=== PATIENT | male | born 1985 | race Caucasian/White ===

== ENCOUNTER 2018-01-10 21:04 | Emergency (ER) | payer MEDICARE, MEDICAID, OTHER ==
[~2018-01-10] VITALS: Ht 190.5 cm; Wt 100.0 kg
[2018-01-10 21:16] VITALS: BP 140/71; PULSE 104; RESP 18; TEMP 99; O2SAT 95
[2018-01-10] MEDS ORDERED: IBUPROFEN 600 MG TAB PO ONE (21:30)
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
== END 2018-01-10 23:02 | disposition home or self-care (01) ==
LOC: NEPE 21:04
DX: M25.512 Pain in left shoulder (principal); Z72.0 Tobacco use
CPT/HCPCS: 71045; 73030; 99283